=== PATIENT | male | born 1945 | race Caucasian/White ===

== ENCOUNTER 2016-09-26 09:44 | Outpatient (CLI) | payer MEDICARE ==
[2016-09-26 11:40] LABS: Prothrombin Time 26.4 SEC (12.0-14.7)
== END 2016-09-26 09:45 | disposition home or self-care (01) ==
LOC: NAV LAB 09:44
PROVIDERS: ATTEND Internal Medicine Cardiovascular Disease
DX: I48.91 Unspecified atrial fibrillation (principal)
CPT/HCPCS: 36415; 85610

== ENCOUNTER 2016-10-17 07:00 | Outpatient (CLI) | payer MEDICARE ==
[2016-10-17 07:53] LABS: Prothrombin Time 33.9 SEC (12.0-14.7)
== END 2016-10-17 07:01 | disposition home or self-care (01) ==
LOC: NAV LAB 07:00
PROVIDERS: ATTEND Internal Medicine Cardiovascular Disease
DX: I48.91 Unspecified atrial fibrillation (principal)
CPT/HCPCS: 36415; 85610

== ENCOUNTER 2016-11-21 07:58 | Outpatient (CLI) | payer MEDICARE ==
[2016-11-21 09:44] LABS: INR-International Normal Ratio 2.4; Prothrombin Time 27.1 SEC (12.0-14.7)
== END 2016-11-21 07:59 | disposition home or self-care (01) ==
LOC: NAV LAB 07:58
PROVIDERS: ATTEND Internal Medicine Cardiovascular Disease
DX: I48.91 Unspecified atrial fibrillation (principal)
CPT/HCPCS: 36415; 85610

== ENCOUNTER 2016-12-01 08:36 | Outpatient (CLI) | payer MEDICARE ==
[2016-12-01 09:16] LABS: Bilirubin Negative (Negative); Blood, Urine Negative (Negative); Clarity Clear (Clear); Glucose, Urine (Dipstick) Negative (Negative); Leukocyte Negative (Negative); Nitrite Negative (Negative); Protein, Urine (Dipstick) Negative (Neg-Trace); Specific Gravity, Urine 1.015 (1.005-1.030)
[2016-12-01 09:37] LABS: ALT (SGPT) 16 U/L (0-55); AST (SGOT) 22 U/L (5-34); Alkaline Phosphatase 103 U/L (40-150); Anion Gap 13 mmol/L (10-20); BUN (Urea Nitrogen) 13 mg/dL (8.4-25.7); Bilirubin, Direct 0.2 mg/dL (0.1-0.3); Bilirubin, Total 0.5 mg/dL (0.2-1.2); Calc. Creatinine Clearance 0 mL/min (70-130); Calcium 8.9 mg/dL (7.8-10.44); Carbon Dioxide 28 mmol/L (23-31); Chloride 101 mmol/L (98-107); Estimated GFR-MDRD Greater than 90; Glucose 111 mg/dL (83-110); Potassium 5.1 mmol/L (3.5-5.1); Protein, Total 6.8 g/dL (5.8-8.1); Sodium 137 mmol/L (136-145)
[2016-12-01 10:09] LABS: Hemoglobin 14.9 g/dL (14.0-18.0); MDiff Complete? YES; Mean Corpuscular HGB CONC 32.3 g/dL (32.0-36.0); Mean Corpuscular Hemoglobin 31.8 pg (27.0-31.0); Mean Corpuscular Volume 98.5 fl (80.0-94.0); Mean Platelet Volume 8.5 fL (7.4-10.4); Platelet Count 131 thou/uL (130-400); RBC Distribution Width 12.4 % (11.5-14.5); Red Blood Cell (RBC) Count 4.69 mill/uL (4.70-6.10); White Blood Cell (WBC) Count 4.6 thou/uL (4.8-10.8)
[2016-12-01 10:10] LABS: Band 2 % (5-11); Eosinophils 1 % (0-10); Lymphocytes 18 % (21-51); Monocytes 19 % (0-10); Neutrophil 60 % (42-75); PLT Morphology Comment Appears Adequate
[2016-12-01 11:08] LABS: Bacteria/HPF Rare-Few HPF (None Seen); Other Microscopic Description NO; RBC/HPF None Seen HPF (0-3); Squamous Epithelial 0-3 HPF (0-3); WBC/HPF None Seen HPF (0-3)
== END 2016-12-01 08:37 ==
LOC: NAV LAB 08:36
PROVIDERS: ATTEND Urology
DX: C61 Malignant neoplasm of prostate (principal); R31.29 Other microscopic hematuria
CPT/HCPCS: 80048; 80076; 81001; 84153; 85025

== ENCOUNTER 2016-12-21 12:08 | Outpatient (CLI) | payer MEDICARE ==
[2016-12-21 12:46] LABS: INR-International Normal Ratio 2.7; Prothrombin Time 29.8 SEC (12.0-14.7)
[2016-12-21 13:04] LABS: Bilirubin, Total 0.6 mg/dL (0.2-1.2); Chloride 98 mmol/L (98-107); Cholesterol 138 mg/dL (< 200 Desired); Potassium 4.1 mmol/L (3.5-5.1); Sodium 134 mmol/L (136-145); Triglycerides 77 mg/dL (Less than 150)
[2016-12-21 13:17] LABS: Follow-up Coag Comp? YES
[2016-12-21 13:28] LABS: ALT (SGPT) 15 U/L (0-55); AST (SGOT) 22 U/L (5-34); Albumin 4.1 g/dL (3.4-4.8); Alkaline Phosphatase 106 U/L (40-150); BUN (Urea Nitrogen) 10 mg/dL (8.4-25.7); Calc. Creatinine Clearance 0 mL/min (70-130); Carbon Dioxide 28 mmol/L (23-31); Estimated GFR-MDRD Greater than 90; Globulin 2.5 g/dL (2.4-3.5); Glucose 108 mg/dL (83-110); HDL Cholesterol 60 mg/dL (>60 Neg Risk); Protein, Total 6.6 g/dL (5.8-8.1)
[2016-12-21 13:37] LABS: Anion Gap 12 mmol/L (10-20)
[2016-12-21 13:53] LABS: LDL Cholesterol, Calculated 63 mg/dL
[2016-12-21 13:54] LABS: Cardiac Risk 2.3 (Less than 4.5)
== END 2016-12-21 12:09 | disposition home or self-care (01) ==
LOC: NAV LAB 12:08
PROVIDERS: ATTEND Internal Medicine Cardiovascular Disease
DX: E78.00 Pure hypercholesterolemia, unspecified (principal)
CPT/HCPCS: 36415; 80053; 80061; 85610

== ENCOUNTER 2017-01-23 08:48 | Outpatient (CLI) | payer MEDICARE ==
[2017-01-23 10:18] LABS: INR-International Normal Ratio 2.5; Prothrombin Time 27.6 SEC (12.0-14.7)
[2017-01-23 10:34] LABS: Follow-up Coag Comp? YES; Follow-up Result - Coag REPORT FAXED
== END 2017-01-23 08:49 | disposition home or self-care (01) ==
LOC: NAV LAB 08:48
PROVIDERS: ATTEND Internal Medicine Cardiovascular Disease
DX: I48.91 Unspecified atrial fibrillation (principal)
CPT/HCPCS: 36415; 85610

== ENCOUNTER 2017-02-20 08:02 | Outpatient (CLI) | payer MEDICARE ==
[2017-02-20 08:41] LABS: INR-International Normal Ratio 2.5; Prothrombin Time 27.6 SEC (12.0-14.7)
== END 2017-02-20 08:03 | disposition home or self-care (01) ==
LOC: NAV LAB 08:02
PROVIDERS: ATTEND Internal Medicine Cardiovascular Disease
DX: I48.91 Unspecified atrial fibrillation (principal)
CPT/HCPCS: 85610

== ENCOUNTER 2017-03-27 08:24 | Outpatient (CLI) | payer MEDICARE ==
[2017-03-27 08:50] LABS: INR-International Normal Ratio 2.8; Prothrombin Time 30.9 SEC (12.0-14.7)
[2017-03-27 09:12] LABS: Follow-up Coag Comp? YES; Follow-up Result - Coag REPORT FAXED
== END 2017-03-27 08:25 | disposition home or self-care (01) ==
LOC: NAV LAB 08:24
PROVIDERS: ATTEND Internal Medicine Cardiovascular Disease
DX: I48.91 Unspecified atrial fibrillation (principal)
CPT/HCPCS: 85610

== ENCOUNTER 2017-03-29 09:33 | Outpatient (CLI) | payer MEDICARE ==
--- NOTE | 2017-03-29 11:48 | ULT ---
UPPER QUADRANT ABDOMINAL ULTRASOUND: History: Hepatitis C. Technique: Multiplanar grayscale and color doppler images were obtained in a right upper quadrant ab dominal ultrasound. FINDINGS: The liver is normal in echogenicity without focal lesions or intrahepatic ductal dilatation. The gal lbladder is normal without stones, sludge, gallbladder wall thickening, or pericholecystic fluid. Th e common bile duct is normal measuring 5 mm. The spleen is normal in size and appearance without focal lesions and measures 9.1 cm in length. The visualized portions of the pancreas are unremarkable. The right kidney is normal in echogenicity wi thout hydronephrosis or calculus and measures 10.8 cm in length. IMPRESSION: Unremarkable exam. POS: [facility]
== END 2017-03-29 09:34 | disposition home or self-care (01) ==
LOC: NAV ULT 09:33
PROVIDERS: ATTEND Physician Assistant Medical
DX: Z86.19 Personal history of other infectious and parasitic diseases (principal)
CPT/HCPCS: 76705

== ENCOUNTER 2017-04-24 08:22 | Outpatient (CLI) | payer MEDICARE ==
[2017-04-24 09:11] LABS: INR-International Normal Ratio 2.7; Prothrombin Time 29.8 SEC (12.0-14.7)
[2017-04-24 09:23] LABS: Follow-up Coag Comp? YES; Follow-up Result - Coag REPORT FAXED
== END 2017-04-24 08:23 | disposition home or self-care (01) ==
LOC: NAV LAB 08:22
PROVIDERS: ATTEND Internal Medicine Cardiovascular Disease
DX: I48.91 Unspecified atrial fibrillation (principal)
CPT/HCPCS: 36415; 85610